=== PATIENT | female | born 1985 | race Native Hawaiian/Other Pacific Islander ===

== ENCOUNTER 2021-03-09 23:02 | Emergency (ER) | payer OTHER ==
[~2021-03-09] VITALS: Ht 167.6 cm; Wt 101.6 kg
[2021-03-09 23:58] LABS: POTASSIUM 3.7 mmol/L (3.6-5.2)
[2021-03-10 00:48] LABS: PLATELET COUNT 277 K/uL (152-353)
[2021-03-10 01:35] VITALS: BP 122/87; TEMP 98.4
== END 2021-03-10 01:35 | disposition home or self-care (01) ==
LOC: ED 23:02
PROVIDERS: Emergency Medicine
DX: R10.84 Generalized abdominal pain (principal); B96.81 Helicobacter pylori [H. pylori] as the cause of diseases classified elsewhere; N39.0 Urinary tract infection, site not specified; E66.8 Other obesity
CPT/HCPCS: 36415; 80053; 81000; 82150; 83690; 85027; 86318; 96365; 96375; 99284; J0696; J3490; Q9963